=== PATIENT | male | born 1965 | race Caucasian/White ===

== ENCOUNTER 2017-12-22 13:08 | Day surgery (SDC) | payer MEDICARE ==
[~2017-12-22] VITALS: Ht 177.8 cm; Wt 90.5 kg
--- NOTE | ~2017-12-22 | OP ---
PATIENT NAME: HANNAH KIM MEDICAL RECORD: [id number] :61 [facility] AD[facility] DATE: SURGEON: RAPHAEL ESQUIVEL DO DATE OF OPERATION: 12/22/2017 PROCEDURE: EGD. INDICATION FOR PROCEDURE: Surveillance of esophageal varices. SCOPE: Olympus video gastroscope. MEDICATIONS: Propofol IV per anesthesia, see anesthesia report. ESTIMATED BLOOD LOSS: None. COMPLICATIONS: None. FINDINGS: Informed consent was given. The patient was made comfortable with the above medication. After reaching an adequate level of sedation by slow IV push, the patient was placed on his left side. The endoscope was then advanced under direct visualization through the mouth to the second portion of the duodenum. The upper third of the esophagus appeared normal. In the middle and distal thirds of the esophagus, there were 3 columns of varices which were rated grade II to grade III without stigmata of bleeding. The endoscope was advanced down to the GE junction where there was evidence of grade A reflux-induced esophagitis, which was mild. The endoscope was advanced beyond the GE junction in the stomach and retroflexed to view the cardia, which appeared normal. There were no varices visualized in the fundus. In the stomach, there was diffuse evidence of [id number] portal hypertensive gastropathy. The endoscope was advanced beyond the pylorus into the duodenum where there was evidence of mild portal hypertensive duodenopathy. The second portion of the duodenum appeared normal. The endoscope was withdrawn from the patient. On withdrawal of the endoscope, there was a cystic-appearing lesion on the posterior dorsal side of the epiglottis. It measured approximately 4-5 mm in diameter and was round and smooth surfaced. The endoscope was then completely withdrawn from the patient. The patient tolerated the procedure well and there were no complications. IMPRESSION: 1. Incidental cystic-appearing lesion on the posterior dorsal side of the epiglottis. 2. Esophageal varices grade II to III without bleeding stigmata. No bands placed on today's examination. 3. LA class A reflux-induced esophagitis. 4. Portal hypertensive gastropathy and duodenopathy. PLAN AND RECOMMENDATIONS: 1. Discharge home when recovery parameters are met. 2. Continue current diet. 3. Continue current medications. 4. Repeat EGD in one year for continued surveillance of esophageal varices with banding if indicated. TRANSINT:[id number] Voice Confirmation ID: [id number] DOCUMENT ID: [id number] OPERATIVE REPORT [id number] HANNAH KIM NATHAN A DO at 1119 CC: [id number] DICTATION DATE: 12/22/17 1549 ASSISTANT TRACK AND FIELD COACH: 12/22/17 1642 [facility] 12/22/17 [place] [id number]
[~2017-12-22 13:08] MED LIST: ALDACTONE100 MG PO; CHRONULAC30 ML PO; COREG6.25 MG PO; FLORAJEN3 CAPS460 MG PO; FUROSEMIDE10 MG/M1 PO; FUROSEMIDE20 MG PO; K-DUR20 MEQ PO; LASIX40 MG PO; LEVAQUIN500 MG PO; OXYCONTIN10 MG PO; ULTRAM50 MG PO; XIFAXAN550 MG PO; ZESTORETIC 10/11 TAB PO
[2017-12-22 14:00] LABS: HEMATOCRIT 35.9 % (42.0-54.0); HEMOGLOBIN 12.9 g/dL (13.5-17.5); MCH 34.3 pg (26.0-34.0); MCHC 35.9 g/dL (31.0-37.0); MCV 95.5 fL (80.0-100.0); MEAN PLATELET VOLUME 9.8 fL (7.4-10.4); RBC 3.76 10x6/uL (4.20-6.10); RDW 15.8 % (11.5-14.5); WBC 9.6 10x3/uL (4.8-10.8)
[2017-12-22 14:05] VITALS: Ht 177.8 cm; Wt 90.5 kg
[2017-12-22 14:20] LABS: ANION GAP 10.7 mmol/L (8-16); CALCIUM 8.6 mg/dL (8.5-10.1); CARBON DIOXIDE 29.9 mmol/L (21.0-32.0); CREATININE - SERUM 1.3 mg/dL (0.6-1.3); POTASSIUM - SERUM 3.6 mmol/L (3.5-5.1)
[2017-12-22 14:38] LABS: INR 1.78 (0.85-1.17); PROTIME 20.1 SECONDS (11.6-15.0)
[2017-12-22 14:39] LABS: APTT 42.2 SECONDS (22.8-39.4)
== END 2017-12-22 16:35 | disposition home or self-care (01) ==
LOC: D.OPS 13:08
PROVIDERS: Anesthesiology
DX: I85.00 Esophageal varices without bleeding (principal); J38.7 Other diseases of larynx; K21.0 Gastro-esophageal reflux disease with esophagitis; K76.6 Portal hypertension; K31.89 Other diseases of stomach and duodenum; Z01.812 Encounter for preprocedural laboratory examination